=== PATIENT | female | born 1970 | race Caucasian/White ===

== ENCOUNTER 2018-08-14 11:33 | Emergency (ER) | payer BC, MEDICAID ==
[2018-08-14 11:55] VITALS: BP 172/96
--- NOTE | 2018-08-14 12:25 | UC ---
Skin Complaint HPI - HPI Summary HPI Summary: Pt presents with c/o "itchy, tender" skin in groin area. Pt was seen by her PCP and given antifungal powder to apply. Pt has been applying powder to groin and states skin has improved but she is still concerned about "what it is". Pt states that she does not like medical porviders or offices, that she hasa anxiety and gets very anxious at doctors offices. Pt is shaky, tearful and appears uncomfortable throughout exam . - History of Current Complaint Chief Complaint: UCGeneralIllness Time Seen by Provider: 08/14/18 11:38 Stated Complaint: PERSONAL Hx Obtained From: Patient Hx Last Menstrual Period: 2012 ?: No Onset/Duration: Gradual Onset, Lasting Days, Still Present - has imporved since applying powder. 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 Associated Signs & Symptoms: Positive: Rash - Allergy/Home Medications Allergies/Adverse Reactions: Allergies Allergy/AdvReac Type Severity Reaction Status Date / Time cefaclor [From [facility]] Allergy Swelling Verified 08/14/18 11:45 Of Face,Lips,& Throat morphine Allergy Unknown Verified 08/14/18 11:45 Reaction Details Penicillins Allergy Hives Verified 08/14/18 11:45 Sulfa (Sulfonamide Allergy Hives Verified 08/14/18 11:45 Antibiotics) tetracycline Allergy Hives Verified 08/14/18 11:45 cillins Allergy Intermediate Hives Uncoded 08/14/18 11:45 Home Medications: Home Medications Acetaminop/Codeine 30 MG TAB* [Tylenol/Codeine 30 MG TAB*] 1 tab PO Q6H PRN [History Confirmed 08/14/18] PMH/Surg Hx/FS Hx/Imm Hx Previously Healthy: Yes Psychological History: Anxiety - Surgical History Surgical History: Yes Surgery Procedure, Year, and Place: Right thumb surgeries to repair fracture. L knee surgery. T&A - Family History Known Family History: Positive: Cardiac Disease - Social History Occupation: Works From/At Home Alcohol Use: None Substance Use Type: None Smoking Status (MU): Heavy Every Day Tobacco Smoker Type: Cigarettes Amount Used/How Often: 1/2 PPD Have You Smoked in the Last Year: Yes - Immunization History Vaccination Up to Date: No Review of Systems All Other Systems Reviewed And Are Negative: Yes Constitutional: Positive: Negative Skin: Positive: Negative, Other - groin covered in powder Eyes: Positive: Negative ENT: Positive: Negative Respiratory: Positive: Negative Cardiovascular: Positive: Negative Gastrointestinal: Positive: Negative Genitourinary: Positive: Negative Motor: Positive: Negative Neurovascular: Positive: Negative Musculoskeletal: Positive: Negative Neurological: Positive: Negative Psychological: Positive: Anxious Is Patient Immunocompromised?: No Physical Exam Triage Information Reviewed: Yes Appearance: Other: - anxious, tearful Vital Signs: Initial Vital Signs Temp 98.1 F 08/14/18 11:46 Pulse 98 08/14/18 11:46 Resp 18 08/14/18 11:46 BP 172/96 08/14/18 11:46 Pulse Ox 97 08/14/18 11:46 Vital Signs Reviewed: Yes Eye Exam: Normal Eyes: Positive: Other: - tearful ENT Exam: Normal Dental Exam: Normal Neck exam: Normal Respiratory Exam: Normal Cardiovascular Exam: Normal Musculoskeletal Exam: Normal Neurological Exam: Normal Psychological Exam: Normal Skin Exam: Normal - white powder in bilateral groin area, small opening at top of gluteal fold. Pt states occasionally, "has odiferous drainage after area swells and is painful" Course/Dx - Course Course Of Treatment: The pt requested that I call her to tell him that she was fine. I phoned and spoke with a person who identified as her and told him that her previously diagnosed skin yeast infection was improving/healing. . - Differential Diagnoses - Skin Complaint Differential Diagnoses: Other - healing skin - Diagnoses Provider Diagnosis: Tinea Discharge - Sign-Out/Discharge Documenting (check all that apply): Patient Departure All imaging exams completed and their final reports reviewed: No Studies - Discharge Plan Condition: Stable Disposition: HOME Prescriptions: Nystatin CREAM* [Nystatin Cream*] 1 applic TOPICAL Q12H #1 tube Patient Education Materials: Antifungals (On the skin) Referrals: Momo Colunga MD [Primary Care Provider] - As Soon As Possible Additional Instructions: Please follow up with your PCP as needed. Please continue with the medication previously prescribed by your PCP. - Billing Disposition and Condition Condition: STABLE Disposition: Home
== END 2018-08-14 12:38 | disposition home or self-care (01) ==
LOC: UCCORT 11:33
DX: B35.9 Dermatophytosis, unspecified (principal); Z88.1 Allergy status to other antibiotic agents; Z88.0 Allergy status to penicillin; F17.210 Nicotine dependence, cigarettes, uncomplicated
CPT/HCPCS: 99202; G0463